=== PATIENT | male | born 1995 | race Two or more races ===

== ENCOUNTER 2024-05-12 19:37 | Emergency (ER) | payer MEDICAID, SELFPAY ==
[2024-05-12 19:51] VITALS: BP 130/80; PULSE 90; RESP 18; TEMP 37.4; O2SAT 95; BMI 28.5
--- NOTE | 2024-05-12 19:59 | XR_ITS ---
History acute facial examination: PA lateral chest 2 views Technique: Upright PA lateral chest 2 views Exam date and time: May 12, 2024 2016 hrs. Indications: Coughing beginning 6 days ago fever today. Findings: Suspicious for early pneumonia in the left upper lobe Normal heart size The osseous structures are intact Impression: Suspicious for early pneumonia in the left upper lobe, anterior segment on the lateral view
--- NOTE | 2024-05-12 19:59 | PD.EDURI ---
Upper Respiratory Inf. RME/HPI General Chief Complaint: Flu Like Symptoms Stated Complaint: COUGHING Time Seen by Provider: 05/12/24 19:59 Source: patient Arrival date/time: 05/12/24 19:37 28-year-old male with no known medical history presents to the emergency room with a chief complaint of coughing, intermittent fevers, congestion, phlegm x 6 days. Mode of arrival: ambulatory Limitations: no limitations Related Data Previous Rx's ?Medication ?Instructions ?Recorded azithromycin 250 mg tablet See Rx Instructions PO .COMPLEX #6 05/12/24 (Zithromax Z-Larry) tabs Allergies Allergy/AdvReac Type Severity Reaction Status Date / Time No Known Allergies Allergy Verified 05/12/24 19:40 Review of Systems Review of Systems Systems Reviewed: All systems reviewed, normal except as documented Constitutional Constitutional: Reports system reviewed and no additional complaints, except as documented, Denies fatigue, Denies fever(s), Denies headache(s) and Denies weakness Eyes Eyes: Reports system reviewed and no additional complaints, except as documented, Denies blurry vision and Denies change in vision ENT Ears, Nose, Mouth, and Throat: Reports system reviewed and no additional complaints, except as documented, Denies otalgia, Denies headache(s), Denies nasal congestion, Denies throat swelling and Denies vertigo Cardiovascular Cardiovascular: Reports system reviewed and no additional complaints, except as documented, Denies chest pain, Reports dyspnea and Denies dyspnea on exertion Respiratory Respiratory: Reports system reviewed and no additional complaints, except as documented, Reports chest congestion, Reports cough, Reports dyspnea, Denies dyspnea on exertion, Reports excessive phlegm production and Denies wheezing Gastrointestinal Gastrointestinal: Reports system reviewed and no additional complaints, except as documented, Denies abdominal pain, Denies cramping, Denies nausea and Denies vomiting Genitourinary Genitourinary: Reports system reviewed and no additional complaints, except as documented, Denies dysuria and Denies hematuria Musculoskeletal Musculoskeletal: Reports system reviewed and no additional complaints, except as documented and Denies back pain Integumentary/Breasts Skin/Breast: Reports system reviewed and no additional complaints, except as documented and Denies wounds Neurologic Neurologic: Reports system reviewed and no additional complaints, except as documented, Denies confusion, Denies headache(s), Denies lack of coordination, Denies vertigo and Denies weakness Psychiatric Psychiatric: Reports system reviewed and no additional complaints, except as documented, Denies anxiety, Denies confusion, Denies depression, Denies paranoia, Denies suicidal ideation and Denies tactile hallucinations Endocrine Endocrine: Reports system reviewed and no additional complaints, except as documented and Denies fatigue Hematologic/Lymphatic Hematologic/Lymphatic: Reports system reviewed and no additional complaints, except as documented and Denies lymphadenopathy Allergic/Immunologic Allergic/Immunologic: Reports system reviewed and no additional complaints, except as documented, Denies throat swelling, Denies urticaria and Denies wheezing Past Medical History Past Medical History CARDIAC: Negative Congestive Heart Failure RESPIRATORY: Negative Chronic Obstructive Pulmonary Disease (COPD) GENITOURINARY: Negative Renal Disease ENDOCRINE: Negative Diabetes Mellitus Type 1 or Diabetes Mellitus Type 2 Social History SMOKING STATUS: Never smoker ED Exam General Limitations: Present no limitations General appearance: Present alert and in no apparent distress Head Head exam: Present atraumatic Eye Eye exam: Present normal appearance, PERRL and EOMI ENT ENT exam: Present normal exam, normal oropharynx and mucous membranes moist Neck Neck exam: Present normal inspection, full ROM and trachea midline Chest Chest inspection: Present normal inspection and symmetric chest wall rise Respiratory Respiratory exam: Present normal lung sounds bilaterally and wheezes; Absent respiratory distress, stridor, accessory muscle use or prolonged expiratory phase Expanded Respiratory Exam Location: Right: wheezes and Lower: wheezes Cardiovascular Cardiovascular exam: Present regular rate, normal rhythm and normal heart sounds Abdominal Exam Abdominal exam: Present soft and normal bowel sounds Extremities Exam Extremities exam: Present normal inspection and full ROM Back Exam Back exam: Present normal inspection and full ROM Neurological Exam Neurological exam: Present alert, oriented X3 and CN II-XII intact Psychiatric Psychiatric exam: Present normal affect and normal mood Skin Skin exam: Present warm, dry, intact and normal color Course Quality Measures none Orders Category Date Time Status Bedside COVID-19 Antigen Test NOW Care 05/12/24 19:59 Completed Bedside Influenza A&B Antigen Test NOW Care 05/12/24 19:59 Completed XR chest 2V Stat Exams 05/12/24 19:59 Completed Vital Signs Vital signs: Vital Signs Temperature 99.3 F 05/12/24 19:51 Pulse Rate 90 05/12/24 19:51 Respiratory Rate 18 05/12/24 19:51 Blood Pressure 130/80 05/12/24 19:51 Pulse Oximetry (%) 95 05/12/24 19:51 Oxygen Delivery Method Room Air 05/12/24 19:51 O2 saturation 95% within normal limits Upper Respiratory Infection MDM Narrative MDM Narrative:: 28-year-old male with no known medical history presents to the emergency room with a chief complaint of coughing, intermittent fevers, congestion, phlegm x 6 days. Clinically the patient appears nontoxic and in no apparent distress. Physical examination shows some wheezing to the right lower lobes. O2 saturation is 96% on room air. Patient states he is having green-yellow phlegm for the last 2 days. Chest x-ray was completed and shows pneumonia. Antibiotics are sent to the patient's pharmacy patient was discharged and educated to follow-up with his primary care provider patient was educated return to the emergency room for any evidence of worsening signs or symptoms Patient data External records reviewed:: [facility] previous records Clinical information provided by:: patient Social determinants that could affect healthcare access:: none Patient has the following chronic illnesses:: No chronic illness How is presenting disease/condition affected by chronic disease/condition?: no chronic disease Evaluation data The following diagnostics were reviewed and interpreted by me:: lab results and radiology exam(s) Lab and/or radiology exams considered but not ordered:: Labs and radiology exams considered and ordered Interpretation Summary: Chest [id number]: Suspicious for early pneumonia in the left upper lobe Normal heart size The osseous structures are intact Impression: Suspicious for early pneumonia in the left upper lobe, anterior segment on the lateral view Medications / Prescriptions Medications or Prescriptions considered but not ordered:: No medication given Medication administrations:: No medication given Consultations Consultation(s) initiated? (list below): No Diagnosis Upper Respiratory Differential Diagnosis: upper respiratory infection, sinusitis, viral infection, bronchitis, influenza, pharyngitis and other (Community-acquired pneumonia) Most likely diagnosis given after review of the tests above:: Community-acquired pneumonia Admission Indicated Admission indicated?: not indicated Admission Request Was there a request for admission?: No Disposition Plan Disposition Plan: Discharge Discharge Attestation Discharge Attestation: The patient and all family members were given an opportunity to ask questions and understood the discharge instructions. Discharge instructions specifically effects, indications for sooner follow up or return to the emergency department, and the expected course of current diagnosis. Patient condition: Stable Discharge Plan Plan Patient Disposition: HOME (Self Care) Disposition Comment: Stable Prescriptions/Referrals Prescriptions/Med Rec: New azithromycin [Zithromax Z-Larry] 250 mg tablet See Rx Instructions .ROUTE .COMPLEX Qty: 6 0RF Rx Instructions: For 250 mg dose pack: take 500 mg today (day 1), then 250 mg for 4 days (days 2-5) Referrals: No Primary/Family,Physician [Primary Care Provider] - In 1 week Problem List Clinical Impression: Community acquired pneumonia Patient/Caregiver Discharge Instructions Education Materials: ED Pneumonia (Adult) Additional Instructions: Sathish un seguimiento con wilson proveedor de atenci?n primaria en las pr?ximas 24 a 48 horas. Wilson radiograf?a de t?rax fue positiva para neumon?a. Los antibi?ticos se env?an a wilson farmacia por favor rec?jalos y t?melos naomi se indica. Si hay evidencia de signos o s?ntomas que empeoran, regrese a la magdy de emergencias de inmediato. Print Language: Mongolian Stand Alone Forms: Cynthia Award Info., Patient Portal Info Letter PA/TRANSITION MGR Supervising Physician PA/TRANSITION MGR Supervising Physician: Dr. Batista
== END 2024-05-12 21:59 | disposition home or self-care (01) ==
PROVIDERS: Emergency Provider Emergency Medicine
DX: J18.9 Pneumonia, unspecified organism (principal)
CPT/HCPCS: 71046; 87400; 87811; 99283